=== PATIENT | male | born 1980 | race African-American/Black ===

== ENCOUNTER 2016-07-29 19:19 | Emergency (ER) | payer OTHER | END 2016-07-29 21:05 | disposition home or self-care (01) | LOC: ER1 19:19 | DX: L84 Corns and callosities (principal); J06.9 Acute upper respiratory infection, unspecified; F17.210 Nicotine dependence, cigarettes, uncomplicated; G40.909 Epilepsy, unspecified, not intractable, without status epilepticus; Z88.2 Allergy status to sulfonamides; Z79.899 Other long term (current) drug therapy | CPT/HCPCS: 87081; 87880; 96372; 99283; J1885 ==